=== PATIENT | female | born 1960 | race Caucasian/White ===

== ENCOUNTER 2020-10-23 08:49 | Outpatient (CLI) | payer BC ==
--- NOTE | 2020-10-23 10:45 | MRI Report ---
PROCEDURE: Lumbar Spine W/O INDICATIONS: SPONDYLOSIS WITHOUT MYELOPATHY, SPINAL STENOSIS, S TECHNIQUE: Noncontrast sagittal T1 spin echo and T2 fast echo, sagittal STIR, axial T1 and T2 fast spin echo thr ough the lumbar spine. In cases with scoliosis, additional coronal T2 fast spin echo may be performe d. COMPARISON: None. FINDINGS: Image quality: Excellent. Alignment and Curvature: Trace anterolisthesis of L5 on S1. The other vertebral bodies are normally a ligned. Bone Marrow: Marrow is of normal overall signal. No acute vertebral body compression fractures. Spinal Cord: Conus medullaris terminates at the L1-L2 level. Visualized cord demonstrates normal si gnal and size. Paraspinous Soft Tissues: No paravertebral masses. T12-L1: No canal stenosis or foraminal stenosis. L1-L2: Minimal disc bulge. Facet hypertrophy. No canal stenosis or foraminal stenosis. L2-L3: Minimal disc bulge. Facet hypertrophy. No canal stenosis or foraminal stenosis. L3-L4: Disc bulge. Facet hypertrophy. Borderline canal stenosis. Mild to moderate right foraminal s tenosis. Mild left foraminal stenosis. L4-L5: Disc bulge. Prominent facet hypertrophy. Mild canal stenosis. Mild to moderate bilateral for aminal stenosis. L5-S1: Trace anterolisthesis of L5 on S1. Diffuse disc bulge. Superimposed small focal right posterio r disc protrusion. Facet and ligament hypertrophy. Severe canal stenosis. Severe right foraminal sten osis with impingement on the exiting right L5 nerve root. Moderate to severe left foraminal stenosis with flattening deformity on the exiting left L5 nerve root. IMPRESSION: 1. Canal stenosis is borderline at L3-L4, mild at L4-L5, and severe at L5-S1. 2. Multilevel facet arthropathy. 3. Multilevel foraminal narrowing as described above. Findings include severe right foraminal stenosi s and moderate to severe left foraminal stenosis at L5-S1. Reviewed by: Freddie Pelaez MD on 10/23/2020 10:44 AM PDT Approved by: Freddie Pelaez MD on 10/23/2020 10:44 AM PDT Station ID: [id number]
--- NOTE | 2020-10-23 15:01 | MRI Report ---
PROCEDURE: Cervical Spine W/O INDICATIONS: SPONDYLOSIS WITHOUT MYELOPATHY, SPINAL STENOSIS, TECHNIQUE: Noncontrast sagittal T1 spin echo and T2 fast spin echo, sagittal STIR, foraminal oblique sagittal T2 fast spin echo, and axial gradient echo or T2 fast spin echo through the cervical spine. COMPARISON: None. FINDINGS: Image quality: Excellent. Alignment and Curvature: Mild C4-5 retrolisthesis and C7-T1, T1-T2. Cervical lordosis maintained. Ant erior listhesis Bone Marrow: Anterior cervical discectomy and fusion noted at C5-6 and C6-7 with anterior plate and s crew hardware in place. Spinal Cord: Visualized spinal cord has normal size and signal. No cerebellar tonsillar herniation. Paraspinous Soft Tissues: No paravertebral masses. Prevertebral soft tissues are normal in thicknes s. C2-C3: Normal in appearance. C3-C4: Mild disc space narrowing and circumferential disc bulge results in mild central stenosis an d ventral cord flattening. No foraminal stenosis present. C4-C5: Moderate disc space narrowing and hypertrophic facet joints are present with mild circumferen tial disc bulge resulting in mild central stenosis. Mild right foraminal stenosis. C5-C6: Discectomy and fusion. No central stenosis. Neural foramina widely patent. C6-C7: Discectomy and fusion without central stenosis. Mild bilateral foraminal stenosis. IMPRESSION: Well-healed anterior cervical discectomy and fusion C5-6 and C6-7 with anterior plate and screw hardw are. Mild multilevel degenerative disc disease and arthropathy with mild central stenosis at C3-4. Reviewed by: Azam Sanz MD on 10/23/2020 2:00 PM [facility] Approved by: Azam Sanz MD on 10/23/2020 2:00 PM [facility] Station ID: [id number]
== END 2020-10-23 08:50 | disposition home or self-care (01) ==
LOC: DI 08:49
PROVIDERS: ATTEND Physical Medicine & Rehabilitation
DX: M47.816 Spondylosis without myelopathy or radiculopathy, lumbar region (principal); M48.061 Spinal stenosis, lumbar region without neurogenic claudication; M48.07 Spinal stenosis, lumbosacral region; M47.812 Spondylosis without myelopathy or radiculopathy, cervical region; M50.31 Other cervical disc degeneration, high cervical region; M48.02 Spinal stenosis, cervical region

== ENCOUNTER 2020-11-25 09:19 | Emergency (ER) | payer BC ==
[2020-11-25] MEDS ORDERED: KETOROLAC 60 MG/2 ML VIAL IM STA (11:23)
[2020-11-25] MEDS ORDERED: DEXAMETHASONE 10 MG/ML VIAL PO STA (11:23)
[2020-11-25] MEDS ORDERED: CHERRY SYRUP 10 ML UDC PO ONE (11:23)
--- NOTE | 2020-11-25 11:25 | ED Physician Documentation ---
PD HPI BACK PAIN - Stated complaint Stated Complaint: BACK PX - Chief complaint Chief Complaint: Back Pain - History obtained from History obtained from: Patient, Family - History of Present Illness Timing - onset: How many weeks ago (4) Timing - duration: Weeks (4) Timing - details: Gradual onset, Still present, Waxing and waning Location: Lower, Right Quality: Pain, Spasm, Sharp, Similar to prior episodes Associated symptoms: No: Fever, Weakness, Numbness, Incontinent of urine, Unable to urinate, Hematuria, Incontinent of stool Improves with: Rest, Position, Meds Worsened by: Movement Contributing factors: Other (has had recent microdiscectomy) Similar symptoms before: Diagnosis (sciatica) Recently seen: Other (had epidural steroid injcetion and prednisone) Review of Systems Constitutional: denies: Fever Eyes: denies: Decreased vision Ears: denies: Ear pain Nose: denies: Congestion Throat: denies: Sore throat Cardiac: denies: Chest pain / pressure, Palpitations Respiratory: denies: Cough GI: reports: Constipation. denies: Abdominal Pain, Nausea, Vomiting : denies: Dysuria, Frequency PD PAST MEDICAL HISTORY - Present Medications Home Medications: Ambulatory Orders Medication Instructions Recorded Confirmed Oxycodone HCl/Acetaminophen 1 - 2 each PO Q6H PRN #14 tablet 11/25/20 [Percocet 5-325 mg Tablet] - Allergies Allergies/Adverse Reactions: Allergies Allergy/AdvReac Type Severity Reaction Status Date / Time Sulfa (Sulfonamide Allergy Rash Verified 11/25/20 09:30 Antibiotics) - Social History Does the pt smoke?: No Smoking Status: Never smoker PD ED PE NORMAL - Vitals Vital signs reviewed: Yes (hypertensive ) - General General: Alert and oriented X 3, Well developed/nourished, Other (60-year-old female laying in a position on her left side is in tears secondary to pain) - HEENT HEENT: Atraumatic, PERRL, EOMI - Neck Neck: Supple, no meningeal sign - Respiratory Respiratory: No respiratory distress - Back Back: No CVA TTP, No spinal TTP - Derm Derm: Normal color, Warm and dry, No rash - Extremities Extremities: No deformity, No edema - Neuro Neuro: Alert and oriented X 3, camera mechanic 2-12 intact, No motor deficit, No sensory deficit, Normal speech Eye Opening: Spontaneous Motor: Obeys Commands Verbal: Oriented GCS Score: 15 - Psych Psych: Normal mood, Normal affect Results - Vitals Vitals: Vital Signs - 24 hr 11/25/20 11/25/20 11/25/20 09:29 11:33 13:00 Temperature 36.8 C Heart Rate 96 64 69 Respiratory 16 18 18 Rate Blood Pressure 103/83 H 143/117 H 124/77 O2 Saturation 100 96 98 11/25/20 14:05 Temperature Heart Rate 64 Respiratory 16 Rate Blood Pressure 140/78 H O2 Saturation 99 Oxygen O2 Source Room air PD MEDICAL DECISION MAKING - ED course Complexity details: reviewed results, re-evaluated patient, considered differential, d/w patient ED course: 60-year-old female who is lost control of her chronic back pain has right-sided sciatica that is severe she has had surgery she has had epidural steroid injection. Today we are offering to help control pain and we administered patient 60 of Toradol IM and 10 mg of dexamethasone. This is inadequate for pain control she is subsequently administered Dilaudid 1 mg IM with Zofran TL and a subsequent second dose of Dilaudid. She feels improved. Departure - Departure Disposition: 01 Home, Self Care Clinical Impression: Sciatica Qualifiers: Laterality: right Qualified Code(s): M54.31 - Sciatica, right side Condition: Stable Instructions: ED Sciatica Follow-Up: Your, spine doctor [Other] Prescriptions: Oxycodone HCl/Acetaminophen [Percocet 5-325 mg Tablet] 1 - 2 each PO Q6H PRN #14 tablet PRN Reason: pain Discharge Date/Time: 11/25/20 14:05
[2020-11-25] MEDS ORDERED: HYDROmorphone 1 MG/ML CARPUJECT IM STA ×2 (12:31→13:39)
[2020-11-25] MEDS ORDERED: ONDANSETRON ODT 4 MG TABLET TL STA (12:31)
[2020-11-25 14:07] VITALS: BP 140/78
== END 2020-11-25 14:05 | disposition home or self-care (01) ==
LOC: ED 09:19
DX: M54.31 Sciatica, right side (principal)
CPT/HCPCS: 96372; 99283; 99284; A9270; J1170; Q0162

== ENCOUNTER 2021-01-17 13:02 | Outpatient (CLI) | payer BC | END 2021-01-17 13:03 | disposition home or self-care (01) | LOC: COV 13:02 | PROVIDERS: ATTEND Nurse Practitioner Acute Care | DX: Z01.812 Encounter for preprocedural laboratory examination (principal); M54.16 Radiculopathy, lumbar region; M43.16 Spondylolisthesis, lumbar region; Z20.822 Contact with and (suspected) exposure to COVID-19 ==

== ENCOUNTER 2021-05-08 13:06 | Outpatient (CLI) | payer BC ==
--- NOTE | 2021-05-08 17:11 | CT Report ---
PROCEDURE: LUMBAR SPINE WO INDICATIONS: S/P 01/20/21 RIGHT L5-S1 TLIF, L5-S1 PSIF TECHNIQUE: Noncontrast 3 mm thick sections acquired from the T12 level to the sacrum. Sagittal and coronal refo rmats were constructed. For radiation dose reduction, the following was used: automated exposure co ntrol, adjustment of mA and/or kV according to patient size. COMPARISON: Correlation is made with prior lumbar MRI, 10/23/2020. FINDINGS: Image quality: There is artifact associated with the metallic hardware. Bones: No acute vertebral body compression fractures. No suspicious lytic or blastic bony lesions. Central spinal caliber is of normal overall caliber. No pars defects. Minimal retrolisthesis is seen at L2-L3. Mild grade 1 anterolisthesis is seen at L5-S1. T11-T12: Bridging anterior osteophytes are seen. Mild to moderate loss of disc height is seen. Mild d isc bulge is seen, which is eccentric to the left. No significant neural foraminal or central canal n arrowing can be seen. T12-L1: The disc height is well-preserved. Prominent bridging anterior osteophytes are seen. No sign ificant neural foraminal or central canal narrowing can be seen. L1-L2: No significant abnormality is seen. L2-L3: The disc height is well-preserved. Moderate disc bulge is seen, with a central disc protrus ion. There is mild right-sided and moderate left-sided neuroforaminal narrowing. Moderate central ca nal narrowing is seen. L3-L4: The disc height is well-preserved. Moderate disc bulge is seen at this level. Mild bilate ral neural foraminal narrowing is seen. Mild central canal narrowing is seen. L4-L5: The disc height is relatively well preserved. Mild to moderate disc bulge is seen at this le selma. Moderate bilateral neural foraminal narrowing is seen. No significant central canal narrowing is seen. L5-S1: Interval placement of postoperative hardware can be seen at this level, with bilateral pedic le screws and vertical fixation rods. A disc spacer is seen at this level. No findings of hardware fa ilure or hardware loosening can be seen. Bone fragments are seen within the right foraminal region, w ith moderate to severe neuroforaminal narrowing, as on series 8 image 45. No left-sided neuroforamina l narrowing can be seen. The central canal is widely patent. The left-sided neuroforamen is clearly improved compared to the prior. Soft tissues: No retroperitoneal masses or hematomas. Visualized aorta is normal in caliber. There is a small to moderate hiatal hernia. Diverticulosis can be seen, without alis findings of active d iverticulitis. IMPRESSION: Interval postoperative change at L5-S1. At L5-S1, the left-sided neuroforamen and the central canal are clearly improved. On the right at L5-S1, there are are apparent bone fragments seen, with moderate to severe neuroforam inal narrowing. Please correlate with intraoperative history. Incidental note is made of: Small to moderate hiatal hernia Sigmoid diverticulosis, without active diverticulitis. Reviewed by: Mir Suggs MD on 05/08/2021 4:10 PM [facility] Approved by: Mir Suggs MD on 05/08/2021 4:10 PM [facility] Station ID: [id number]
== END 2021-05-08 13:07 | disposition home or self-care (01) ==
LOC: DI 13:06
DX: Z48.811 Encounter for surgical aftercare following surgery on the nervous system (principal); Z98.1 Arthrodesis status; M43.16 Spondylolisthesis, lumbar region; M54.16 Radiculopathy, lumbar region

== ENCOUNTER 2021-09-23 08:50 | Outpatient (CLI) | payer BC ==
--- NOTE | 2021-09-23 10:37 | MRI Report ---
PROCEDURE: Knee LT W/O INDICATIONS: PAIN IN LEFT KNEE TECHNIQUE: Noncontrast sagittal PD fast spin echo and T2 fast spin echo with fat saturation, sagittal 3-D spoile d GE with fat saturation; coronal T1 spin echo and PD fast spin echo with fat saturation, and axial P D fast spin echo with fat saturation through the knee. COMPARISON: None. FINDINGS: Image quality: Excellent. Anterior cruciate ligament: Intact. Posterior cruciate ligament: Intact. Medial collateral ligament: Mild edema is seen surrounding the mid to proximal medial collateral lig ament, which may indicate a low-grade sprain. Lateral collateral ligament: Intact. Medial meniscus: Intact. Lateral meniscus: There is horizontal oblique tearing at the anterior horn and body of the lateral m eniscus extending to the inner third of the tibial articular surface. Medial and lateral tendons: The semimembranosus tendon insertions appear intact. Visualized portion s of the pes anserinus tendons appear normal. The popliteus tendon appears intact. Iliotibial band appears normal. Anterior structures: The quadriceps and patellar tendons appear intact. Patellar alignment is makenzie l. No femoral trochlear dysplasia or ventral trochlear prominence. No edema in the infrapatellar fa t pad. Bones: Mild osseous edema at the lateral tibial plateau and lateral femoral condyle may be secondary to overlying cartilage loss or reactive to the adjacent meniscal tear versus less likely secondary t o a direct contusion. Medial femorotibial cartilage: Mild generalized cartilage thinning is seen in the weightbearing port ion of the medial femorotibial compartment. Lateral femorotibial cartilage: There is full-thickness cartilage loss in the central to posterior w eightbearing portion of the lateral tibial plateau and lateral femoral condyle with subchondral edema and marginal osteophyte formation. Patellofemoral cartilage: Cartilage fissuring and partial-thickness cartilage irregularity are seen at the median ridge and lateral facet of the patella. There is moderate partial-thickness cartilage t hinning and irregularity at the lateral femoral trochlea. Soft tissues: There is a medium-sized joint effusion. Possible 4 mm intra-articular loose body versu s focal synovial hypertrophy in the posterior intercondylar notch (image 3 of series 17). There is no medial popliteal cyst. The musculature surrounding the knee is normal in bulk. IMPRESSION: 1.Horizontal oblique tearing of the anterior horn and body lateral meniscus extending to the inner th ird of the tibial articular surface. 2.Low-grade sprain of the medial collateral ligament. 3.Full-thickness cartilage loss in the central to posterior weightbearing portion of the lateral femo rotibial compartment with subchondral edema and marginal osteophyte formation. Grade 2-3 chondromalac ia is seen in the anterior and medial compartments. 4.Moderate joint effusion. 4 mm loose body versus focal synovial hypertrophy at the posterior interco ndylar notch. Reviewed by: Syed Royal MD on 09/23/2021 10:35 AM PDT Approved by: Syed Royal MD on 09/23/2021 10:35 AM PDT Station ID: [id number]
== END 2021-09-23 08:51 | disposition home or self-care (01) ==
LOC: DI 08:50
DX: S83.282A Other tear of lateral meniscus, current injury, left knee, initial encounter (principal); S83.412A Sprain of medial collateral ligament of left knee, initial encounter; M94.262 Chondromalacia, left knee; M25.462 Effusion, left knee

== ENCOUNTER 2021-10-14 08:00 | Outpatient (CLI) | payer BC ==
--- NOTE | 2021-10-14 16:59 | XRAY Report ---
PROCEDURE: Knee 4 View LT INDICATIONS: KNEE PX TECHNIQUE: 4 views of the left knee and Single view of the right knee COMPARISON: None FINDINGS: Bones: No fractures or dislocations. No suspicious bony lesions. There is moderate left lateral fe morotibial compartment narrowing. Soft tissues: No joint effusion. No suspicious soft tissue calcifications. IMPRESSION: Mild left knee osteoarthritis. Reviewed by: Domitila Barros MD on 10/14/2021 4:57 PM PDT Approved by: Domitila Barros MD on 10/14/2021 4:57 PM PDT Station ID: [id number]
== END 2021-10-14 23:59 | disposition home or self-care (01) ==
LOC: DI.WOS 08:00
PROVIDERS: ATTEND Physician Assistant
DX: M17.12 Unilateral primary osteoarthritis, left knee (principal)

== ENCOUNTER 2022-03-12 09:45 | Outpatient (CLI) | payer BC ==
--- NOTE | 2022-03-12 14:05 | XRAY Report ---
PROCEDURE: Knee 4 View LT INDICATIONS: LEFT KNEE PAIN TECHNIQUE: 3 views of the left knee(s) were acquired. COMPARISON: 3 views of the left knee dated 10/14/2021. FINDINGS: Bones: No fractures or dislocations. No suspicious bony lesions. There is mild femorotibial compar tment narrowing. Soft tissues: No joint effusion. No suspicious soft tissue calcifications. IMPRESSION: Mild joint space narrowing. No other radiographic abnormalities. Reviewed by: Domitila Barros MD on 03/12/2022 2:04 PM PST Approved by: Domitila Barros MD on 03/12/2022 2:04 PM PST Station ID: [id number]
== END 2022-03-12 23:59 | disposition home or self-care (01) ==
LOC: DI.WOS 09:45
PROVIDERS: ATTEND Orthopaedic Surgery
DX: M17.12 Unilateral primary osteoarthritis, left knee (principal)

== ENCOUNTER 2022-06-15 10:03 | Emergency (ER) | payer BC ==
[2022-06-15 10:19] VITALS: BP 117/82
--- NOTE | 2022-06-15 10:45 | XRAY Report ---
PROCEDURE: Knee 4 View LT INDICATIONS: Trauma TECHNIQUE: 4 views of the x-ray knee knee(s) were acquired. COMPARISON: 03/12/2022 FINDINGS: Bones: No fractures or dislocations. Slight lateral subluxation of the patella. No suspicious bony l esions. Tricompartmental arthritic change. Soft tissues: Moderate joint effusion. No suspicious soft tissue calcifications. IMPRESSION: Moderate effusion. No visualized acute fracture or dislocation. However, occult injury cannot be excl uded. Recommend short interval imaging follow-up in 7-10 days as clinically indicated for additional evaluation. Reviewed by: Allie Serrano MD on 06/15/2022 10:44 AM [facility] Approved by: Allie Serrano MD on 06/15/2022 10:44 AM PST Station ID: [id number]
--- NOTE | 2022-06-15 11:50 | ED Physician Documentation ---
PD HPI LOWER EXT INJURY - Stated complaint Stated Complaint: L KNEE INJURY - Chief complaint Chief Complaint: Trauma Ext - History obtained from History obtained from: Patient - Additional information Additional information: 61-year-old woman with known osteoarthritis and meniscus injury in the left knee. Has been following with Dr. Lyle. Yesterday her right leg went into a puddle and then the left leg twisted. She did not fall but she has a significant increase in her pain. No other injuries. PD PAST MEDICAL HISTORY - Present Medications Home Medications: Ambulatory Orders Medication Instructions Recorded Confirmed Oxycodone HCl/Acetaminophen 1 - 2 each PO Q6H PRN #14 tablet 11/25/20 [Percocet 5-325 mg Tablet] - Allergies Allergies/Adverse Reactions: Allergies Allergy/AdvReac Type Severity Reaction Status Date / Time Sulfa (Sulfonamide Allergy Rash Verified 06/15/22 10:19 Antibiotics) - Social History Does the pt smoke?: No Smoking Status: Never smoker PD ED PE NORMAL - Vitals Vital signs reviewed: Yes - General General: Alert and oriented X 3, No acute distress - Extremities Extremities: Other (R knee w lg effusion, mild anterior ttp. limited rom d/t pain, ACL/PCL/LCL/MCL testing is nl. V painful frind testing.) Results - Vitals Vitals: Vital Signs - 24 hr 06/15/22 10:16 Temperature 36.9 C Heart Rate 82 Respiratory 16 Rate Blood Pressure 117/82 H O2 Saturation 99 Oxygen O2 Source Room air - Rads (name of study) X-ray of the left knee demonstrates a large effusion without fracture. Radiology: Final report received, EMP read indepedently PD Medical Decision Making - ED course ED course: She already had significant knee osteoarthritis and internal derangement. Exam most consistent with a worsening of her meniscus injury which can also cause the effusion. She was placed in knee immobilizer. She declined prescription pain medications. She will follow-up with her orthopedist. Departure - Departure Disposition: 01 Home, Self Care Clinical Impression: Internal derangement of knee joint Qualifiers: Laterality: left Qualified Code(s): M23.92 - Unspecified internal derangement of left knee Condition: Good Record reviewed to determine appropriate education?: Yes Instructions: ED Meniscal Injury Knee Poss Follow-Up: Orthopedic Care [Provider Group] Comments: As discussed, exam seems consistent with worsening of meniscus injury. Follow-up with the orthopedic office this week for reevaluation and further care. Return for new or worsening symptoms. Wear the knee immobilizer splint when up and around, you do not have to wear it when just sitting or in bed. Discharge Date/Time: 06/15/22 12:10
== END 2022-06-15 12:10 | disposition home or self-care (01) ==
LOC: ED 10:03
DX: M23.92 Unspecified internal derangement of left knee (principal); X50.1XXA Overexertion from prolonged static or awkward postures, initial encounter; Y92.9 Unspecified place or not applicable
CPT/HCPCS: 99283

== ENCOUNTER 2022-06-20 12:54 | Outpatient (CLI) | payer BC ==
--- NOTE | 2022-06-21 12:38 | CT Report ---
PROCEDURE: LOWER EXTREMITY WO - LT INDICATIONS: NONDISPLACED FX OF TIBIA TECHNIQUE: Noncontrast 3-mm axial sections acquired from the distal tibial shaft to the talar dome, with coronal and sagittal reformats. For radiation dose reduction, the following was used: automated exposure c ontrol, adjustment of mA and/or kV according to patient size. COMPARISON: None. FINDINGS: Image quality: Excellent. Bones: Nondisplaced tibial plateau fracture at the lateral aspect. No significant depression. Mild to moderate degenerative changes. Knee joint appears congruent. There are patellar enthesophytes . Soft tissues: Lipohemarthrosis. Impression: Nondisplaced fracture of the lateral tibial plateau. No significant depressed fragment. L ipohemarthrosis. Reviewed by: Jesus Peter MD on 06/21/2022 12:37 PM PDT Approved by: Jesus Peter MD on 06/21/2022 12:37 PM PDT Station ID: [id number]
== END 2022-06-20 12:55 | disposition home or self-care (01) ==
LOC: DI 12:54
PROVIDERS: ATTEND Student in an Organized Health Care Education/Training Program
DX: S82.145A Nondisplaced bicondylar fracture of left tibia, initial encounter for closed fracture (principal)

== ENCOUNTER 2022-07-28 14:35 | Outpatient (CLI) | payer BC ==
--- NOTE | 2022-07-29 11:34 | XRAY Report ---
PROCEDURE: Knee 4 View LT INDICATIONS: LEFT TIBIAL PLATEAU FRACTURE TECHNIQUE: 4 views of the left knee(s) were acquired. COMPARISON: X-ray left knee, 06/15/2022, 03/12/2022. CT left lower extremity, 06/20/2022 FINDINGS: Bones: There is a nondisplaced tibial plateau fracture. The alignment is unchanged. No suspicious b carole lesions. Moderate degenerative joint disease, most pronounced in the lateral and vertebral comp artment and patellofemoral compartment. Soft tissues: There is knee joint effusion. No suspicious soft tissue calcifications or masses. IMPRESSION: 1. Nondisplaced tibial plateau fracture. No central depression. The alignment is stable. 2. Moderate degenerative joint disease. 3. Trace knee joint effusion Reviewed by: Ayan Tucker MD on 07/29/2022 11:33 AM PDT Approved by: Ayan Tucker MD on 07/29/2022 11:33 AM PDT Station ID: [id number]
== END 2022-07-28 14:39 | disposition home or self-care (01) ==
LOC: DI.WOS 14:35
PROVIDERS: ATTEND Orthopaedic Surgery
DX: S82.125D Nondisplaced fracture of lateral condyle of left tibia, subsequent encounter for closed fracture with routine healing (principal); M17.12 Unilateral primary osteoarthritis, left knee; M25.462 Effusion, left knee

== ENCOUNTER 2022-08-25 16:33 | Outpatient (CLI) | payer BC ==
--- NOTE | 2022-08-25 11:46 | XRAY Report ---
PROCEDURE: Knee 4 View LT INDICATIONS: LEFT LATERAL TIBIA FRACTURE TECHNIQUE: 4 views of the left knee(s) were acquired. COMPARISON: 07/28/2022 and 06/15/2022. FINDINGS: Bones: There is interval healing at patient's known lateral tibial plateau fracture site with increa sed sclerosis. No gross new fracture or dislocation. Moderate tricompartmental osteoarthritis is agai n seen or No suspicious bony lesions. Soft tissues: No knee joint effusion. No suspicious soft tissue calcifications or masses. IMPRESSION: Interval further healing at lateral tibial plateau fracture site. No new fracture or dislocation. No significant joint effusion. Moderate tricompartmental osteoarthritis. Reviewed by: Dl Rand MD on 08/25/2022 10:44 AM [facility] Approved by: Dl Rand MD on 08/25/2022 10:44 AM [facility] Station ID: [id number]
== END 2022-08-25 16:34 | disposition home or self-care (01) ==
LOC: DI.WOS 16:33
PROVIDERS: ATTEND Orthopaedic Surgery
DX: S82.142D Displaced bicondylar fracture of left tibia, subsequent encounter for closed fracture with routine healing (principal)